=== PATIENT | female | born 2000 | race Caucasian/White ===

== ENCOUNTER 2022-12-27 19:52 | Outpatient (OUT) | payer SELFPAY | END 2022-12-27 19:53 | disposition home or self-care (01) | LOC: SLEEP 19:52 | PROVIDERS: PCP Nurse Practitioner; Visit Provider Nurse Practitioner | DX: G47.33 Obstructive sleep apnea (adult) (pediatric) (principal); R06.83 Snoring; E66.9 Obesity, unspecified; Z68.41 Body mass index [BMI] 40.0-44.9, adult; R51.9 Headache, unspecified; R53.83 Other fatigue | CPT/HCPCS: 95811 ==